=== PATIENT | female | born 1980 ===

== ENCOUNTER 2020-12-05 10:55 | Emergency (ER) | payer BC, OTHER ==
[2020-12-05] MEDS ORDERED: Diazepam 5 MG Tab PO ONE (11:35)
[2020-12-05] MEDS ORDERED: Dexamethasone 10 MG/ML SDV IVPUSH ONE (11:35)
[2020-12-05] MEDS ORDERED: Ketorolac 15 MG/ML SDV IVPUSH STA (11:35)
--- NOTE | 2020-12-05 11:51 | EDM.PDOC ---
ED HPI GENERAL MEDICAL PROBLEM - General Chief Complaint: Neck Problem Stated Complaint: SOB/PAIN IN SIDE OF NECK AND STERNUM Time Seen by Provider: 12/05/20 10:56 Source of Information: Reports: Patient History Limitations: Reports: No Limitations - History of Present Illness INITIAL COMMENTS - FREE TEXT/NARRATIVE: 32-year-old female no significant past medical history presents for right-sided neck and upper extremity pain. Patient states the pain started yesterday. It is primarily in her right posterolateral neck rating down the right upper extremity. It is worse with movement of her neck or raising her right upper extremity. No history of injuries. No history of similar pain in the past. Patient does also note a mild substernal chest pain that seems worse with inspiration. Non-smoker. No OCP use. No history of blood clots. 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 Musculoskeletal History: Reports: None Neurological History: Reports: None Psychiatric History: Reports: None Endocrine/Metabolic History: Reports: Obesity/BMI 30+ Hematologic History: Reports: None Immunologic History: Reports: None Oncologic (Cancer) History: Reports: None Dermatologic History: Reports: None - Infectious Disease History Infectious Disease History: Reports: Chicken Pox, Novel Coronavirus - Past Surgical History Head Surgeries/Procedures: Reports: None GI Surgical History: Reports: Cholecystectomy Social & Family History - Family History Family Medical History: No Pertinent Family History - Tobacco Use Tobacco Use Status *Q: Never Tobacco User - Caffeine Use Caffeine Use: Reports: Soda - Recreational Drug Use Recreational Drug Use: No ED ROS GENERAL - Review of Systems Review Of Systems: Comprehensive ROS is negative, except as noted in HPI. ED EXAM, GENERAL - Physical Exam Exam: See Below Exam Limited By: No Limitations General Appearance: Alert, WD/WN, No Apparent Distress Ears: Hearing Grossly Normal Throat/Mouth: Normal Voice, No Airway Compromise Head: Atraumatic, Normocephalic Neck: Normal Inspection, Other (right paracervical musculature TTP, negative R spurling ). No: Tender Midline Respiratory/Chest: No Respiratory Distress, Lungs Clear, Normal Breath Sounds, No Accessory Muscle Use Cardiovascular: Normal Peripheral Pulses, Regular Rate, Rhythm, No Edema Extremities: Normal Inspection, Other (normal guardian ad litem strength) Neurological: Alert, Normal Cognition, Normal Gait Psychiatric: Normal Affect, Normal Mood Skin Exam: Warm, Dry, Intact, Normal Color #1 Interpretation EKG Date: 12/05/20 Time: 11:53 Rhythm: NSR Rate (Beats/Min): 76 [place]: Normal P-Wave: Present QRS: Normal ST-T: Normal QT: Normal OR/PQ Interval: 124 Comparison: NA - No Prior EKG EKG Interpretation Comments: normal EKG, nonischemic, 1x PVC Course - Vital Signs Last Recorded V/S: Last Vital Signs Temp 97.7 F 12/05/20 11:24 Pulse 74 12/05/20 11:24 Resp 18 12/05/20 11:24 BP 129/68 12/05/20 11:24 Pulse Ox 97 12/05/20 11:24 - Orders/Labs/Meds Orders: Active Orders 24 hr Category Date Time Status Saline Lock Insert [OM.PC] Stat Oth 12/05/20 11:35 Ordered Labs: Laboratory Tests 12/05/20 12/05/20 12/05/20 Range/Units 12:02 12:02 12:02 WBC 11.63 H (4.0-11.0) K/uL RBC 4.41 (4.30-5.90) M/uL Hgb 13.9 (12.0-16.0) g/dL Hct 40.8 (36.0-46.0) % MCV 92.5 (80.0-98.0) fL MCH 31.5 (27.0-32.0) pg MCHC 34.1 (31.0-37.0) g/dL RDW Std Deviation 46.4 (28.0-62.0) fl RDW Coeff of [place] 14 (11.0-15.0) % Plt Count 246 (150-400) K/uL MPV 10.30 (7.40-12.00) fL Neut % (Auto) 65.3 (48.0-80.0) % Lymph % (Auto) 24.3 (16.0-40.0) % [place] % (Auto) 4.8 (0.0-15.0) % Eos % (Auto) 5.2 (0.0-7.0) % Baso % (Auto) 0.4 (0.0-1.5) % Neut # (Auto) 7.6 H (1.4-5.7) K/uL Lymph # (Auto) 2.8 H (0.6-2.4) K/uL [place] # (Auto) 0.6 (0.0-0.8) K/uL Eos # (Auto) 0.6 (0.0-0.7) K/uL Baso # (Auto) 0.1 (0.0-0.1) K/uL Nucleated RBC % 0.0 /100WBC Nucleated RBCs # 0 K/uL D-Dimer, Quantitative 0.25 (0.0-0.50) mg/L FEU Sodium 139 (136-145) mmol/L Potassium 3.9 (3.5-5.1) mmol/L Chloride 102 (98-107) mmol/L Carbon Dioxide 25.4 (21.0-32.0) mmol/L BUN 10 (7.0-18.0) mg/dL Creatinine 0.8 (0.6-1.0) mg/dL Est Cr Clr Drug Dosing 78.87 mL/min Estimated GFR (MDRD) > 60.0 ml/min Glucose 98 (74-106) mg/dL Calcium 8.4 L (8.5-10.1) mg/dL Total Bilirubin 0.4 (0.2-1.0) mg/dL AST 14 L (15-37) IU/L ALT 21 (14-63) IU/L Alkaline Phosphatase 56 (46-116) U/L Troponin I < 0.050 (0.000-0.056) ng/mL Total Protein 7.5 (6.4-8.2) g/dL Albumin 3.9 (3.4-5.0) g/dL Globulin 3.6 (2.6-4.0) g/dL Albumin/Globulin Ratio 1.1 (0.9-1.6) Meds: Medications Discontinued Medications Generic Name Dose Route Start Last Admin Trade Name Fadyq PRN Reason Stop Dose Admin Dexamethasone 10 mg 12/05/20 11:35 12/05/20 12:09 Dexamethasone 10 Mg/Ml Sdv IVPUSH 12/05/20 11:36 10 mg ONETIME ONE Administration Diazepam 5 mg 12/05/20 11:35 12/05/20 12:09 Diazepam 5 Mg Tab PO 12/05/20 11:36 5 mg ONETIME ONE Administration Ketorolac Tromethamine 15 mg 12/05/20 11:35 12/05/20 12:08 Ketorolac 15 Mg/Ml Sdv IVPUSH 12/05/20 11:36 15 mg STAT STA Administration - Re-Assessments/Exams Free Text/Narrative Re-Assessment/Exam: 12/05/20 11:50 Likely cervical radiculopathy although will r/o ACS vs PE 12/05/20 12:56 Patient states that pain is substantially improved after medications. I do suspect cervical radiculopathy. No evidence of ACS or PE on labs or imaging. Departure - Departure Time of Disposition: 12:56 Disposition: Home, Self-Care 01 Condition: Good Clinical Impression: Cervical radiculopathy - Discharge Information Prescriptions: Cyclobenzaprine [Flexeril] 10 mg PO TID PRN #20 tab PRN Reason: Muscle Spasm - Painful predniSONE 40 mg PO DAILY 5 Days #10 tab Instructions: Cervical Radiculopathy Referrals: Radha Vázquez INDUSTRIAL ENGINEERING MANAGER [Primary Care Provider] - Forms: ED Department Discharge Additional Instructions: Your symptoms are highly suggestive of cervical radiculopathy which is a pinched nerve in the neck. Prescription medication has been sent to [facility]. I sent over a steroid to take for the next 5 days. I also sent over some muscle relaxants which he can take as needed. These are safe to take with Tylenol or Motrin for pain relief. Please keep in mind if taking Motrin and steroids together that this can be harsh on the stomach so you should take this with food. If you are taking Motrin for more than 5 days in a row you should consult your primary care physician as this can increase the risk of gastritis or ulcers in the stomach. The following information is given to patients seen in the emergency department who are being discharged to home. This information is to outline your options for follow-up care. We provide all patients seen in our emergency department with a follow-up referral. The need for follow-up, as well as the timing and circumstances, are variable depending upon the specifics of your emergency department visit. If you don't have a primary care physician on staff, we will provide you with a referral. We always advise you to contact your personal physician following an emergency department visit to inform them of the circumstance of the visit and for follow-up with them and/or the need for any referrals to a consulting specialist. The emergency department will also refer you to a specialist when appropriate. This referral assures that you have the opportunity for follow-up care with a specialist. All of these measure are taken in an effort to provide you with optimal care, which includes your follow-up. Under all circumstances we always encourage you to contact your private physician who remains a resource for coordinating your care. When calling for follow-up care, please make the office aware that this follow-up is from your recent emergency room visit. If for any reason you are refused follow-up, please contact the [facility] Emergency Department at and asked to speak to the emergency department charge nurse. Please follow up with your primary care physician. If you do not have a primary care physician, see below: [facility] [address] [place] [id number] [facility] [address] [place] [address] [facility] [address] [place] [id number] Sepsis Event Note (ED) - Evaluation Sepsis Screening Result: No Definite Risk - Focused Exam Vital Signs: Vital Signs Temp Pulse Resp BP Pulse Ox 12/05/20 11:24 97.7 F 74 18 129/68 97 - My Orders Last 24 Hours: My Active Orders 12/05/20 11:35 Saline Lock Insert [OM.PC] Stat - Assessment/Plan Last 24 Hours: My Active Orders 12/05/20 11:35 Saline Lock Insert [OM.PC] Stat
--- NOTE | 2020-12-05 12:10 | CR ---
INDICATION: Chest pain. TECHNIQUE: Chest 1 view. COMPARISON: Chest radiograph 02/05/2018. FINDINGS: No focal consolidation, pleural effusion, or pneumothorax. Normal heart size and pulmonary vascularity. The bones are unremarkable. IMPRESSION: No acute cardiopulmonary findings. Dictated by Cindy Iverson MD @ 12/05/2020 12:07:58 PM (Electronically Signed)
[2020-12-05 12:43] LABS: BLOOD UREA NITROGEN,BUN 10 mg/dL (7.0-18.0); CARBON DIOXIDE,CO2 25.4 mmol/L (21.0-32.0); CHLORIDE,CL 102 mmol/L (98-107); GLUCOSE RANDOM 98 mg/dL (74-106); POTASSIUM,K 3.9 mmol/L (3.5-5.1); SODIUM,NA 139 mmol/L (136-145)
== END 2020-12-05 13:17 | disposition home or self-care (01) ==
LOC: MW.ED 10:55
DX: M54.12 Radiculopathy, cervical region (principal); Z90.49 Acquired absence of other specified parts of digestive tract
CPT/HCPCS: 36415; 71045; 80053; 84484; 85025; 85379; 93005; 96374; 96375; 99284; A9270; J1100; J1885